=== PATIENT | female | born 1950 | race Asian ===

== ENCOUNTER 2017-02-26 14:05 | Inpatient (IN) | payer MEDICARE, OTHER ==
[~2017-02-26] VITALS: Ht 165.1 cm; Wt 51.7 kg
--- NOTE | 2017-02-26 14:15 | NUR ---
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 Per 5151 Hold pt endorse SI and is unable to contract for safety. Patient refused Novolog insulin for 2 days on 1:1 assessment, pt alert, oriented x 2, preoccupied with her own thoughts, anxious, flat affect, mood depressed, Pt stated "I have been crying for past few days, I am very depressed". History of bipolar, DM, and hypertension. Dr. Blanton and Dr. Cutler notified with admit orders patient's right hand book given and explained to patient. Patient able to verbalize understanding. All belongings checked in by staff. Start patient on [id number] safety check.
[2017-02-26] MEDS ORDERED: TEMA15CA PO (14:29)
[2017-02-26] MEDS ORDERED: INSU100V11 SQ (14:42)
[2017-02-26] MEDS ORDERED: MAGNESIUM HYDROXIDE 30 ML UDC PO PRN (15:00)
[2017-02-26] MEDS ORDERED: ACETAMINOPHEN 325 MG TABLET PO PRN (15:00)
[2017-02-26] MEDS ORDERED: MAG HYDROX/AL HYDROX/SIMETH 30 ML UDC PO PRN (15:00)
[2017-02-26 16:00] VITALS: BP 131/67
[2017-02-26] MEDS ORDERED: DEXTROSE 50%-WATER 50 ML DISP.SYRIN IV PRN (16:00)
[2017-02-26] MEDS: INSULIN REGULAR, HUMAN 100 UNIT/ML 3 ML VIAL SQ PRN (17:30)
[2017-02-26] MEDS: BLOOD SUGAR DIAGNOSTIC 1 EACH STRIP IN SCH ×2 (17:37→22:33)
[2017-02-26 20:16] VITALS: BP 116/58
--- NOTE | 2017-02-26 21:26 | NUR ---
RN GPS NOTES AT 2125 PT. BLOOD SUGAR IS 496MG/DL , AT 2223 RECHECK BLOOD SUGAR IS 445 MG/DL AND GAVE 10 UNITS OF REGULAR INSULIN , CHARGE NURSE NOTIFIED .
[2017-02-26] MEDS: *INSULIN REGULAR(HUMULIN R)HUM 100 UNIT/ML VIAL SQ PRN (22:32)
--- NOTE | 2017-02-26 23:39 | NUR ---
RN GPS NOTES AT 2339 RECHECK BLOOD SUGAR IS 422 ,CHARGE NURSE NOTIFIED , PT. COMFORTABLY RESTING NO ACUTE DISTRESS NOTED , WILL CONTINUE TO MONITOR .
--- NOTE | 2017-02-27 02:17 | NUR ---
RN GPS NOTES AT 0217 PT. BLOOD SUGAR IS 287 MG /DL , CHARGE NURSE NOTIFIED , PT. COMFORTABLY RESTING , NO ACUTE DISTRESS NOTED , WILL CONTINUE TO MONITOR .
--- NOTE | 2017-02-27 05:00 | NUR ---
RN GPS NOTES AT 0500 PT. BLOOD SUGAR IS 372 MG /DL , CHARGE NURSE NOTIFIED , PT. COMFORTABLY RESTING , NO ACUTE DISTRESS NOTED , WILL CONTINUE TO MONITOR .
--- NOTE | 2017-02-27 07:00 | NUR ---
RN OPENING NOTE PT WANDERING IN HALLWAY--CONFUSED. DENIES SI/HI. DENIES AVH. MOVES ALL EXT. A&OX1. FREE FROM INJURY AT PRESENT. WILL CONT TO MONITOR.
[2017-02-27] MEDS: BLOOD SUGAR DIAGNOSTIC 1 EACH STRIP IN SCH ×4 (08:31→21:32)
[2017-02-27] MEDS: INSULIN REGULAR, HUMAN 100 UNIT/ML 3 ML VIAL SQ PRN ×3 (08:51→16:41)
[2017-02-27 08:58] LABS: BASOPHILS # (AUTO) 0.1 /CMM (0.0-0.2); BASOPHILS % (AUTO) 1.2 % (0.0-2.0); EOSINOPHILS # (AUTO) 0.1 /CMM (0.0-0.7); EOSINOPHILS % (AUTO) 1.3 % (0.0-6.0); HEMATOCRIT 40 % (33-45); HEMOGLOBIN 13.3 g/dL (11.5-14.8); LYMPHOCYTES # (AUTO) 1.2 /CMM (0.8-4.8); MEAN CORPUSCULAR HEMOGLOBIN 30 PG (26.0-33.0); MEAN CORPUSCULAR HGB CONC 33 g/dl (31.0-36.0); MEAN CORPUSCULAR VOLUME 90 fL (82-100); MONOCYTES # (AUTO) 0.4 /CMM (0.1-1.30); NEUTROPHILS # (AUTO) 3.8 /CMM (1.8-8.9); NEUTROPHILS % (AUTO) 68.5 % (43.0-81.0); PLATELET COUNT (AUTO) 302 /CMM (150-450); RDW COEFFICIENT OF VARIATION 12.8 (11.5-15.0); RED BLOOD CELL COUNT(AUTO) 4.43 MIL/uL (4.0-5.2); WHITE BLOOD COUNT (AUTO) 5.5 K/uL (4.3-11.0)
--- NOTE | 2017-02-27 09:06 | NUR ---
CRITICAL VALUE FINGER STICK GLUCOSE CHECK 555 AND 565 ON RE-CHECK. ADMINISTERED 20UNITS HUMILIN ORDERED. PHONED DR. MIRANDA IRAHETA AND RECEIVED ORDER FOR ADD'TL 10UNITS HUMILIN ONE TIME STAT. RECE'VD ORDER FOR LANTUS 20 UNITS TO BEGIN TONIGHT. PT ASYMPTOMATIC.
[2017-02-27 09:07] VITALS: BP 122/69
[2017-02-27] MEDS ORDERED: INSULIN REGULAR, HUMAN 100 UNIT/ML 10 ML VIAL SQ STA (09:08)
[2017-02-27 09:17] LABS: ALBUMIN 3.3 g/dL (3.4-5.0); BILIRUBIN,TOTAL 0.5 mg/dL (0.2-1.0); CALCIUM, SERUM 9.4 mg/dL (8.5-10.1); CREATININE 0.8 mg/dL (0.6-1.3); MAGNESIUM 1.9 mg/dL (1.8-2.4); POTASSIUM 4.2 mmol/L (3.5-5.1); TOTAL PROTEIN, SERUM 6.7 g/dL (6.4-8.2)
--- NOTE | 2017-02-27 11:37 | NUR ---
RN NOTES HYPERGLYCEMIA SPOKE TO DR. MIRANDA LEAL BY PHONE. BLOOD SUGAR 502 FINGERSTICK. NO NEW ORDERS. 20 UNITS HUMILIN SC ADM AT THIS TIME.
[2017-02-27] MEDS: ARIPIPRAZOLE 5 MG TABLET PO SCH ×2 (12:40→21:32)
[2017-02-27] MEDS: glipiZIDE 5 MG TABLET PO SCH (16:28)
[2017-02-27 16:36] VITALS: BP 106/67
--- NOTE | 2017-02-27 18:47 | NUR ---
RN CLOSING NOTE PT RESTING CALM IN BED. DENIES SI/HI. DENIES AVH. MOVES ALL EXT. A&OX2. FREE FROM INJURY AT PRESENT. WILL ENDORSE TO PUSHPA GOOD.
[2017-02-27 19:57] VITALS: BP 107/59
[2017-02-27 20:00] VITALS: BP 107/59
[2017-02-27] MEDS: INSULIN DETEMIR 100 UNIT/ML CARTRIDGE SQ SCH (21:33)
--- NOTE | 2017-02-27 21:35 | NUR ---
GPS/COIN MACHINE OPERATOR NOTES: PT. REFUSED DETERMIR 20 UNIT SQ HS ORDERED. OFFERED 3X. EXPLAINED RISK AND BENEFITS. PT. STILL REFUSED. WILL CONTINUE TO MONITOR. CHARGE NURSE MADE AWARE
[2017-02-28 08:00] VITALS: BP 114/59
[2017-02-28] MEDS: BLOOD SUGAR DIAGNOSTIC 1 EACH STRIP IN SCH ×4 (10:50→21:48)
[2017-02-28] MEDS: ARIPIPRAZOLE 5 MG TABLET PO SCH ×2 (10:56→21:37)
[2017-02-28] MEDS: glipiZIDE 5 MG TABLET PO SCH ×2 (10:56→17:22)
[2017-02-28] MEDS: *INSULIN REGULAR(HUMULIN R)HUM 100 UNIT/ML VIAL SQ PRN ×2 (11:01→22:12)
[2017-02-28] MEDS: INSULIN REGULAR, HUMAN 100 UNIT/ML 3 ML VIAL SQ PRN ×2 (12:50→17:24)
--- NOTE | 2017-02-28 12:51 | NUR ---
RN NOTES PATIENT BS-446 MG/DL, ACCU CHECK DONE AFTER PATIENT EAT LUNCH, MD JEAN NOTIFIED, AND NEW ORDER CONTINUE SLIDING SCALE SCHEDULED. ORDER TAKEN AND CARRIED OUT.CONTINUED MONITORING.
--- NOTE | 2017-02-28 15:24 | NUR ---
Initial Discharge Plan Patient lives at [address] [place] [address] with her parents and wishes to return upon discharge. SW spoke with patient's sister, Cha [phone] who stated she felt it was safe for patient to return. Cha stated that pt's parents care deeply about her and they all help each other out. SW will help form a safe and proper discharge plan.
[2017-02-28 16:00] VITALS: BP 111/72
[2017-02-28 20:00] VITALS: BP 102/60
[2017-02-28] MEDS: INSULIN DETEMIR 100 UNIT/ML CARTRIDGE SQ SCH (22:15)
--- NOTE | 2017-02-28 22:25 | NUR ---
GPS/RN NOTE: C/O INSOMNIA, AMBIEN 5 MG TAB PO GIVEN.
[2017-03-01 08:00] VITALS: BP 110/66
[2017-03-01] MEDS: BLOOD SUGAR DIAGNOSTIC 1 EACH STRIP IN SCH ×4 (09:12→21:20)
[2017-03-01] MEDS: glipiZIDE 5 MG TABLET PO SCH ×2 (09:12→17:34)
[2017-03-01] MEDS: ARIPIPRAZOLE 5 MG TABLET PO SCH ×2 (09:12→21:20)
[2017-03-01] MEDS: INSULIN REGULAR, HUMAN 100 UNIT/ML 3 ML VIAL SQ PRN ×3 (09:14→17:36)
[2017-03-01 16:00] VITALS: BP 126/70
[2017-03-01 20:00] VITALS: BP 101/62
[2017-03-01] MEDS: INSULIN DETEMIR 100 UNIT/ML CARTRIDGE SQ SCH (21:25)
[2017-03-02 08:00] VITALS: BP 103/53
--- NOTE | 2017-03-02 08:14 | NUR ---
AFS-II-AAOPO: BLOOD SUGAR IS 235 MG/DL AND 8 UNITS OF REGULAR INSULIN
[2017-03-02] MEDS: glipiZIDE 5 MG TABLET PO SCH ×2 (09:08→16:35)
[2017-03-02] MEDS: BLOOD SUGAR DIAGNOSTIC 1 EACH STRIP IN SCH ×4 (09:08→22:09)
[2017-03-02] MEDS: INSULIN REGULAR, HUMAN 100 UNIT/ML 3 ML VIAL SQ PRN ×3 (09:11→17:16)
[2017-03-02] MEDS: ARIPIPRAZOLE 5 MG TABLET PO SCH ×3 (09:15→21:27)
--- NOTE | 2017-03-02 12:44 | NUR ---
JCE-OJ-HPMTH: BLOOD SUGAR IS 326 MG/DL AND GAVE 16 UNITS OF REGULAR INSULIN
[2017-03-02 16:00] VITALS: BP 111/58
[2017-03-02] MEDS: *INSULIN REGULAR(HUMULIN R)HUM 100 UNIT/ML VIAL SQ PRN (22:07)
[2017-03-02] MEDS: INSULIN DETEMIR 100 UNIT/ML CARTRIDGE SQ SCH (22:08)
[2017-03-02 22:58] VITALS: BP 124/67
[2017-03-03] MEDS: BLOOD SUGAR DIAGNOSTIC 1 EACH STRIP IN SCH ×4 (07:30→22:03)
--- NOTE | 2017-03-03 07:55 | NUR ---
GPS/RN NOTES: Checked patient's blood sugar as scheduled 486mg/dl given Humulin R 20units per sliding scale coverage. Repeated after 30 mins. BS result 487mg/dl. Dr. Lao notified with new order of Metformin noted and carried out. Will continue to monitor. Addendum: 03/03/17 at [address]VNG CHICAS RN Dr. Dominguez notified of BS not Dr. Lao
[2017-03-03] MEDS: INSULIN REGULAR, HUMAN 100 UNIT/ML 3 ML VIAL SQ PRN ×2 (07:58→12:00)
[2017-03-03 08:00] VITALS: BP 110/58
[2017-03-03] MEDS: glipiZIDE 5 MG TABLET PO SCH ×2 (08:31→17:01)
[2017-03-03] MEDS: ARIPIPRAZOLE 5 MG TABLET PO SCH ×3 (08:31→21:14)
[2017-03-03] MEDS: METFORMIN 500 MG TABLET PO SCH ×2 (09:05→17:03)
[2017-03-03] MEDS: TRIHEXYPHENIDYL HCL 2 MG TABLET PO SCH ×2 (13:50→17:45)
[2017-03-03 16:00] VITALS: BP 137/64
[2017-03-03 20:16] VITALS: BP 98/54
[2017-03-03] MEDS: INSULIN DETEMIR 100 UNIT/ML CARTRIDGE SQ SCH (22:06)
[2017-03-03] MEDS: *INSULIN REGULAR(HUMULIN R)HUM 100 UNIT/ML VIAL SQ PRN (22:08)
[2017-03-04 06:45] LABS: BASOPHILS # (AUTO) 0.1 /CMM (0.0-0.2); BASOPHILS % (AUTO) 0.8 % (0.0-2.0); EOSINOPHILS # (AUTO) 0.1 /CMM (0.0-0.7); EOSINOPHILS % (AUTO) 0.8 % (0.0-6.0); HEMATOCRIT 39 % (33-45); HEMOGLOBIN 13.1 g/dL (11.5-14.8); LYMPHOCYTES # (AUTO) 2.1 /CMM (0.8-4.8); LYMPHOCYTES % (AUTO) 26.8 % (20.0-44.0); MEAN CORPUSCULAR HEMOGLOBIN 30 PG (26.0-33.0); MEAN CORPUSCULAR HGB CONC 34 g/dl (31.0-36.0); MEAN CORPUSCULAR VOLUME 90 fL (82-100); MONOCYTES # (AUTO) 0.7 /CMM (0.1-1.30); MONOCYTES % (AUTO) 8.8 % (2.0-12.0); NEUTROPHILS # (AUTO) 4.9 /CMM (1.8-8.9); NEUTROPHILS % (AUTO) 62.8 % (43.0-81.0); PLATELET COUNT (AUTO) 366 /CMM (150-450); RDW COEFFICIENT OF VARIATION 12.7 (11.5-15.0); RED BLOOD CELL COUNT(AUTO) 4.31 MIL/uL (4.0-5.2); WHITE BLOOD COUNT (AUTO) 7.8 K/uL (4.3-11.0)
[2017-03-04 06:54] LABS: CALCIUM, SERUM 9.7 mg/dL (8.5-10.1); CREATININE 0.7 mg/dL (0.6-1.3); POTASSIUM 4.2 mmol/L (3.5-5.1)
[2017-03-04] MEDS: glipiZIDE 5 MG TABLET PO SCH ×2 (07:58→17:33)
[2017-03-04] MEDS: TRIHEXYPHENIDYL HCL 2 MG TABLET PO SCH ×3 (07:59→18:19)
[2017-03-04] MEDS: ARIPIPRAZOLE 5 MG TABLET PO SCH ×3 (07:59→21:01)
[2017-03-04 08:00] VITALS: BP 102/51
[2017-03-04] MEDS: METFORMIN 500 MG TABLET PO SCH ×2 (08:00→17:33)
[2017-03-04] MEDS: INSULIN REGULAR, HUMAN 100 UNIT/ML 3 ML VIAL SQ PRN ×2 (09:55→17:37)
[2017-03-04] MEDS: BLOOD SUGAR DIAGNOSTIC 1 EACH STRIP IN SCH ×4 (09:56→22:04)
--- NOTE | 2017-03-04 11:48 | NUR ---
RN NOTES BLOOD SUGAR 46. PROVIDED WITH ORANGE JUICE AND SNACKS. BLOOD SUGAR RECHECKED IN 30 MINUTES.
--- NOTE | 2017-03-04 12:15 | NUR ---
RN NOTES PATIENT BLOOD SUGAR NOW 158. WILL CONTINUE TO MONITOR.
--- NOTE | 2017-03-04 12:30 | NUR ---
RN NOTES NOTIFIED DR. BOUCHER OF BLOOD SUGAR DROP AND SPIKE. WILL CONTINUE TO MONITOR AND WILL ENDORSE TO NIGHT RN.
[2017-03-04 15:41] VITALS: BP 100/59
[2017-03-04] MEDS: INSULIN DETEMIR 100 UNIT/ML CARTRIDGE SQ SCH (19:00)
[2017-03-04 20:05] VITALS: BP 130/75
[2017-03-04] MEDS: TEMAZEPAM 7.5 MG CAPSULE PO PRN (21:01)
[2017-03-05 06:57] LABS: BASOPHILS # (AUTO) 0.1 /CMM (0.0-0.2); BASOPHILS % (AUTO) 1.1 % (0.0-2.0); EOSINOPHILS # (AUTO) 0.1 /CMM (0.0-0.7); EOSINOPHILS % (AUTO) 1.5 % (0.0-6.0); HEMATOCRIT 36 % (33-45); HEMOGLOBIN 12.2 g/dL (11.5-14.8); LYMPHOCYTES % (AUTO) 31.1 % (20.0-44.0); MEAN CORPUSCULAR HEMOGLOBIN 30 PG (26.0-33.0); MEAN CORPUSCULAR HGB CONC 34 g/dl (31.0-36.0); MEAN CORPUSCULAR VOLUME 89 fL (82-100); MONOCYTES # (AUTO) 0.6 /CMM (0.1-1.30); NEUTROPHILS # (AUTO) 3.7 /CMM (1.8-8.9); NEUTROPHILS % (AUTO) 57.3 % (43.0-81.0); PLATELET COUNT (AUTO) 341 /CMM (150-450); RDW COEFFICIENT OF VARIATION 12.8 (11.5-15.0); RED BLOOD CELL COUNT(AUTO) 4.06 MIL/uL (4.0-5.2); WHITE BLOOD COUNT (AUTO) 6.4 K/uL (4.3-11.0)
[2017-03-05 07:09] LABS: CALCIUM, SERUM 9.2 mg/dL (8.5-10.1); CREATININE 0.5 mg/dL (0.6-1.3); PHOSPHORUS 3.7 mg/dL (2.5-4.9)
[2017-03-05] MEDS: glipiZIDE 5 MG TABLET PO SCH ×2 (07:30→16:30)
[2017-03-05 08:00] VITALS: BP 113/67
[2017-03-05] MEDS: ARIPIPRAZOLE 5 MG TABLET PO SCH ×3 (08:00→22:54)
[2017-03-05] MEDS: TRIHEXYPHENIDYL HCL 2 MG TABLET PO SCH ×3 (08:00→18:05)
[2017-03-05] MEDS: BLOOD SUGAR DIAGNOSTIC 1 EACH STRIP IN SCH ×4 (08:13→22:57)
[2017-03-05] MEDS: INSULIN REGULAR, HUMAN 100 UNIT/ML 3 ML VIAL SQ PRN ×2 (08:14→17:59)
[2017-03-05] MEDS: METFORMIN 500 MG TABLET PO SCH ×2 (09:10→17:49)
--- NOTE | 2017-03-05 12:10 | NUR ---
VALENTINE called and made appointment for patient with her psychiatrist, Dr. Johnson [id number], . Addendum: 03/05/17 at 1211 by CONNOR GRIJALVA Appointment set for March 08 at 2:15pm.
[2017-03-05 16:00] VITALS: BP 130/70
[2017-03-05 20:00] VITALS: BP 117/75
[2017-03-05] MEDS: INSULIN DETEMIR 100 UNIT/ML CARTRIDGE SQ SCH (22:00)
[2017-03-05] MEDS: TEMAZEPAM 7.5 MG CAPSULE PO PRN (22:54)
--- NOTE | 2017-03-05 22:58 | NUR ---
GPS/RN ACCU CHECK BLOOD SUGAR = 98, LEVEMIR NOT GIVEN. WILL MONITOR PATIENT.
[2017-03-05] MEDS: LORAZEPAM 0.5 MG TABLET PO PRN (23:52)
--- NOTE | 2017-03-05 23:55 | NUR ---
GPS/RN PATIENT STILL AWAKE, WALKING AROUND HALLWAY, AGITATION NOTED, ATIVAN 0.5 MG PO WAS GIVEN ORDERED. WILL MONITOR.
--- NOTE | 2017-03-06 06:05 | NUR ---
GPS/RN AWAKE, NOTED TO BE FIXING HER BED, ALL NEEDS ATTENDED AT THIS TIME. WILL CONTINUE TO MONITOR.
[2017-03-06] MEDS: BLOOD SUGAR DIAGNOSTIC 1 EACH STRIP IN SCH ×4 (07:47→21:52)
[2017-03-06] MEDS: INSULIN REGULAR, HUMAN 100 UNIT/ML 3 ML VIAL SQ PRN ×2 (07:55→18:08)
[2017-03-06 08:00] VITALS: BP 116/68
[2017-03-06] MEDS: TRIHEXYPHENIDYL HCL 2 MG TABLET PO SCH ×3 (08:23→17:39)
[2017-03-06] MEDS: ARIPIPRAZOLE 5 MG TABLET PO SCH ×3 (08:23→21:40)
[2017-03-06] MEDS: glipiZIDE 5 MG TABLET PO SCH ×2 (08:23→16:36)
[2017-03-06] MEDS: METFORMIN 500 MG TABLET PO SCH ×2 (08:24→17:07)
--- NOTE | 2017-03-06 08:46 | NUR ---
MOHSEN-NOTES PATIENT BLOOD SUGAR WAS 314MG/DL, 16 UNITS OF R INSULIN GIVEN ORDERED. Addendum: 03/06/17 at 1143 by MIKE PATRICK LVN CORRECTIONS ON MY EARLIER NOTES. PATIENT BLOOD SUGAR AT 0755 WAS 341MG/DL.
--- NOTE | 2017-03-06 10:55 | NUR ---
CLOTH BLEACHING RANGE TENDER-NOTES SEEN THE PATIENT WITH VERBAL ORDER OF LEVEMIR 10 UNITS X1.NOTED AND CARRIED OUT.
[2017-03-06] MEDS ORDERED: INSULIN DETEMIR 100 UNIT/ML CARTRIDGE SQ ONE (11:00)
--- NOTE | 2017-03-06 11:30 | NUR ---
PARTS REPRESENTATIVE-NOTES PATIENT BLOOD SUGAR WAS 92MG/DL,NO COVERAGE GIVEN.
[2017-03-06] MEDS: QUETIAPINE FUMARATE 25 MG TABLET PO SCH ×2 (14:03→17:07)
[2017-03-06] MEDS: LORAZEPAM 0.5 MG TABLET PO PRN (15:41)
--- NOTE | 2017-03-06 15:45 | NUR ---
VULCANIZER OPERATOR-NOTES NOTED PATIENT VERY ANXIOUS PACING AND DIGGING TRUST. STATED" MY MOM WAS HERE YESTERDAY AND MY DAD IS COMING I NEED TO GIVE HIM SOMETHING". REORIENTED AND REDIRECTED PATIENT AND OFFERED ATIVAN AND AGREED. ATIVAN 0.5MG P.O GIVEN PRN ORDER. WILL CONT. MONITORING FOR SAFETY AND BEHAVIOR.
[2017-03-06 15:59] VITALS: BP 120/75
--- NOTE | 2017-03-06 18:10 | NUR ---
HELIX COIL WINDER-NOTES PATIENT BLOOD SUGAR WAS 182MG/DL,4 UNITS OF R INSULIN GIVEN ORDERED.
[2017-03-06 20:00] VITALS: BP 126/59
[2017-03-06] MEDS: TEMAZEPAM 7.5 MG CAPSULE PO PRN (21:40)
[2017-03-06] MEDS: INSULIN DETEMIR 100 UNIT/ML CARTRIDGE SQ SCH (22:14)
[2017-03-07 07:08] LABS: CALCIUM, SERUM 8.7 mg/dL (8.5-10.1); CREATININE 0.6 mg/dL (0.6-1.3); MAGNESIUM 1.9 mg/dL (1.8-2.4); PHOSPHORUS 4.5 mg/dL (2.5-4.9); POTASSIUM 4.1 mmol/L (3.5-5.1)
[2017-03-07] MEDS: BLOOD SUGAR DIAGNOSTIC 1 EACH STRIP IN SCH ×4 (07:30→21:19)
--- NOTE | 2017-03-07 07:54 | NUR ---
GPS RN NOTE PATIENT REFUSED BLOOD GLUCOSE CHECK STATING SHE DOES NOT WANT TO BE BOTHERED AND WANTS TO SLEEP. RN EXPLAINED THE REASON OF THE BLOOD GLUCOSE CHECK. PATIENT STATED SHE UNDERSTANDS THE REASON OF THE TEST AND STILL REFUSES IT.
[2017-03-07 08:00] VITALS: BP 114/74
--- NOTE | 2017-03-07 08:00 | NUR ---
GPS RN AM NOTES PT WANDERING IN HALLWAY--CONFUSED. DENIES SI/HI. DENIES AVH. MOVES ALL EXT. A&OX1. FREE FROM INJURY AT PRESENT. WILL CONT TO MONITOR.
[2017-03-07] MEDS: ARIPIPRAZOLE 5 MG TABLET PO SCH ×3 (08:58→21:08)
[2017-03-07] MEDS: METFORMIN 500 MG TABLET PO SCH ×2 (08:59→16:30)
[2017-03-07] MEDS: QUETIAPINE FUMARATE 25 MG TABLET PO SCH ×2 (08:59→16:30)
[2017-03-07] MEDS: TRIHEXYPHENIDYL HCL 2 MG TABLET PO SCH ×3 (08:59→18:26)
[2017-03-07] MEDS: glipiZIDE 5 MG TABLET PO SCH ×2 (08:59→16:30)
--- NOTE | 2017-03-07 09:03 | NUR ---
VALENTINE cancelled pt's follow up appointment with her psychiatrist, Dr. Johnson [address] [place], , on FridayMarch 08 because patient will be at [facility] through the weekend. Intermediate Project Manager informed VALENTINE to call day of discharge to schedule appointment.
[2017-03-07] MEDS: INSULIN REGULAR, HUMAN 100 UNIT/ML 3 ML VIAL SQ PRN (12:41)
[2017-03-07 16:00] VITALS: BP 98/51
[2017-03-07 20:00] VITALS: BP 105/54
[2017-03-07] MEDS: INSULIN DETEMIR 100 UNIT/ML CARTRIDGE SQ SCH (21:25)
[2017-03-08] MEDS: BLOOD SUGAR DIAGNOSTIC 1 EACH STRIP IN SCH ×4 (07:48→21:55)
[2017-03-08] MEDS: INSULIN REGULAR, HUMAN 100 UNIT/ML 3 ML VIAL SQ PRN ×3 (07:49→21:57)
[2017-03-08 08:00] VITALS: BP 110/72
[2017-03-08] MEDS: METFORMIN 500 MG TABLET PO SCH ×2 (08:29→17:20)
[2017-03-08] MEDS: QUETIAPINE FUMARATE 25 MG TABLET PO SCH ×2 (08:29→17:20)
[2017-03-08] MEDS: glipiZIDE 5 MG TABLET PO SCH ×2 (08:29→17:20)
[2017-03-08] MEDS: ARIPIPRAZOLE 5 MG TABLET PO SCH ×3 (08:30→21:48)
[2017-03-08] MEDS: TRIHEXYPHENIDYL HCL 2 MG TABLET PO SCH ×3 (08:30→17:20)
[2017-03-08 16:00] VITALS: BP 100/59
[2017-03-08 20:00] VITALS: BP 121/57
[2017-03-08] MEDS: TEMAZEPAM 7.5 MG CAPSULE PO PRN (21:49)
[2017-03-08] MEDS: INSULIN DETEMIR 100 UNIT/ML CARTRIDGE SQ SCH (21:56)
[2017-03-09] MEDS: BLOOD SUGAR DIAGNOSTIC 1 EACH STRIP IN SCH ×4 (07:39→21:11)
[2017-03-09] MEDS: glipiZIDE 5 MG TABLET PO SCH ×2 (07:47→16:20)
[2017-03-09] MEDS: METFORMIN 500 MG TABLET PO SCH ×2 (07:47→16:20)
[2017-03-09] MEDS: ARIPIPRAZOLE 5 MG TABLET PO SCH ×3 (07:48→21:16)
[2017-03-09] MEDS: QUETIAPINE FUMARATE 25 MG TABLET PO SCH ×3 (07:48→16:21)
[2017-03-09] MEDS: TRIHEXYPHENIDYL HCL 2 MG TABLET PO SCH ×3 (07:48→17:00)
[2017-03-09 08:00] VITALS: BP 100/59
[2017-03-09] MEDS: INSULIN REGULAR, HUMAN 100 UNIT/ML 3 ML VIAL SQ PRN ×2 (08:18→16:58)
[2017-03-09 15:25] VITALS: BP 103/58
--- NOTE | 2017-03-09 19:30 | NUR ---
RN NOTE; RECEIVED POT IN BED , SLEEPING.BREATHING EVENLY. W/ NO S/S OF DISCOMFORT. WILL CONT TO MONITOR.
[2017-03-09 20:00] VITALS: BP 118/71
[2017-03-09 20:20] VITALS: BP 118/77
[2017-03-09] MEDS: INSULIN DETEMIR 100 UNIT/ML CARTRIDGE SQ SCH (21:16)
--- NOTE | 2017-03-09 21:20 | NUR ---
HELD LEVEMSHANIQUE FOR BS:92. PT ALERT W/ NO ALOC, NO AMS. NO S/S OF HYPOGLYCEMIA. WILL CONT TO MONITOR .
--- NOTE | 2017-03-10 06:34 | NUR ---
RN NOTE; PT IN BED AWAKE AND ALERT. COMPLIANT W/ MED AND POC . NO PSYCH OR BEHAVIORAL ISSUES. NO S/S OF HYPO OR HYPERGLYCEMIA.HAD A GOOD NIGHT SLEEP. NEEDS ATTENDED. BED LOW LOCKED .WILL CONT TO MONITOR AND WILL ENDORSE TO AM SHIFT FOR JOSUÉ .
[2017-03-10 06:52] LABS: CALCIUM, SERUM 9.2 mg/dL (8.5-10.1); CREATININE 0.8 mg/dL (0.6-1.3); MAGNESIUM 1.7 mg/dL (1.8-2.4); PHOSPHORUS 3.4 mg/dL (2.5-4.9); POTASSIUM 4.1 mmol/L (3.5-5.1)
[2017-03-10] MEDS: BLOOD SUGAR DIAGNOSTIC 1 EACH STRIP IN SCH ×5 (07:49→22:04)
[2017-03-10 08:00] VITALS: BP 150/69
[2017-03-10] MEDS: INSULIN REGULAR, HUMAN 100 UNIT/ML 3 ML VIAL SQ PRN ×2 (08:04→17:34)
[2017-03-10] MEDS: TRIHEXYPHENIDYL HCL 2 MG TABLET PO SCH ×3 (08:39→18:37)
[2017-03-10] MEDS: glipiZIDE 5 MG TABLET PO SCH ×2 (08:39→16:34)
[2017-03-10] MEDS: ARIPIPRAZOLE 5 MG TABLET PO SCH ×3 (08:40→21:12)
[2017-03-10] MEDS: QUETIAPINE FUMARATE 25 MG TABLET PO SCH ×2 (09:38→16:59)
[2017-03-10] MEDS: METFORMIN 500 MG TABLET PO SCH ×2 (09:44→16:59)
[2017-03-10] MEDS: MAGNESIUM OXIDE 400 MG TABLET PO SCH ×2 (11:08→21:12)
[2017-03-10 16:45] VITALS: BP 100/66
--- NOTE | 2017-03-10 19:30 | NUR ---
GPS RN NOTE, RECEIVED PATIENT AWAKE AND IN BED NO S/S OR COMPLAINTS OF PAIN AT THIS TIME. PATIENT IS DISPLAYING NO S/S OF APPARENT DISTRESS AT THIS TIME. PATIENT BREATHING IS UNLABORED WITH EQUAL RISE AND FALL OF THE CHEST. PATIENT IS ALERT AND ORIENTED X3 ON ROOM AIR WITH A SPOO2 98%. PATIENT IS MED COMPLIANT, PREOCCUPIED WITH OWN THOUGHTS, ANXIOUS, DISORGANIZED, AND NEEDS REORIENTATION. PATIENT DENIES SUICIDE IDEATIONS AND HOMICIDAL IDEATIONS AT THIS TIME. PATIENT ASSISTED WITH TURNING AND REPOSITIONING Q2HR AND PRN FOR COMFORT AND CIRCULATION. PATIENT HAS NO NEEDS AT THIS TIME. PATIENT EDUCATED ON THE USE OF THE CALL GUERRERO. PATIENT BED SIDE RAILS UP X 2 FOR SAFETY. PATIENT BED IS LOCKED AND LOW WILL CONTINUE TO MONITOR AND MAINTAIN SAFETY Q15 MIN WITH THE HELP OF STAFF.
[2017-03-10 20:38] VITALS: BP 114/61
[2017-03-10] MEDS: INSULIN DETEMIR 100 UNIT/ML CARTRIDGE SQ SCH (22:00)
--- NOTE | 2017-03-10 22:04 | NUR ---
GPS RN NOTE, PERFORMED ACCU CHECK ON PATIENT WITH A BLOOD SUGAR RESULT OF 77. NO INSULIN GIVEN PER SLIDING SCALE. HELD LEVEMIR 10 UNITS DUE TO LOW BLOOD SUGAR. PATIENT OFFERED AND GIVEN SNACK. WILL CONTINUE TO MONITOR THIS PATIENT.
[2017-03-11 08:00] VITALS: BP 105/63
--- NOTE | 2017-03-11 09:00 | NUR ---
GPS/RN BS 392 THIS A.M., ADMINISTERED 20 UNITS REGULAR INSULIN PER SLIDING SCALE. WILL CONTINUE TO MONITOR.
[2017-03-11] MEDS: METFORMIN 500 MG TABLET PO SCH (09:09)
[2017-03-11] MEDS: glipiZIDE 5 MG TABLET PO SCH (09:10)
[2017-03-11] MEDS: QUETIAPINE FUMARATE 25 MG TABLET PO SCH (09:10)
[2017-03-11] MEDS: ARIPIPRAZOLE 5 MG TABLET PO SCH ×2 (09:10→13:58)
[2017-03-11] MEDS: TRIHEXYPHENIDYL HCL 2 MG TABLET PO SCH ×2 (09:10→13:58)
[2017-03-11] MEDS: INSULIN REGULAR, HUMAN 100 UNIT/ML 3 ML VIAL SQ PRN (09:15)
[2017-03-11] MEDS: BLOOD SUGAR DIAGNOSTIC 1 EACH STRIP IN SCH ×2 (09:17→12:06)
--- NOTE | 2017-03-11 15:47 | NUR ---
Discharge Note Patient will be discharged home to [address] [place] [address] via private vehicle. Patient will be picked up by her sister, Cha [phone]. Patient lives with her parents and her sister is really involved in her care. The family is agreeable with this plan. Patient will be seen by her psychiatrist, Dr. Johnson [address] [place], on Friday, 03/14 at 1pm. Patient also has an appointment with her medical doctor, Dr. Barger [address] [facility] [phone], on 03/17 at 10:30am. SW also faxed a home health order to [facility] [phone] / fax number [phone].
[2017-03-11 16:07] VITALS: BP 106/60
[2017-03-11] MEDS ORDERED: TRIHEXYPHENIDYL HCL 2 MG TABLET PO STA (16:15)
[2017-03-11] MEDS ORDERED: QUETIAPINE FUMARATE 25 MG TABLET PO STA (16:15)
--- NOTE | 2017-03-11 16:19 | NUR ---
RN-CO: Per sister(responsible democrat) if they can bring one dose due at 5pm of Charline Bishop, Seroquel since accdg to them their pharmacy is closed at this time. Notified Dr Blanton and ok'd for it.
--- NOTE | 2017-03-11 16:22 | NUR ---
Please note that VALENTINE was notified by Akshat from [facility] that this agency does not service [place]. VALENTINE faxed over an referral to [facility] [phone] / fax number [phone]
[2017-03-11] MEDS ORDERED: ARIPIPRAZOLE 5 MG TABLET PO SCH (16:30)
[2017-03-11] MEDS ORDERED: ARIPIPRAZOLE 5 MG TABLET PO ONE ×2 (16:30→16:44)
--- NOTE | 2017-03-11 17:00 | NUR ---
GPS/RN PATIENT CLEARED FOR DISCHARGE HOME (to [address] [place] [address] via private vehicle. Patient will be picked up by her sister, Cha [phone]) BY DR BABCOCK AND DR MALONEY. PRESCRIPTIONS, AFTERCARE PLAN AND PACKET, EXPLAINED TO PATIENT AND SISTER CHA, VERBALIZED UNDERSTANDING. PRESCRIPTIONS FAXED TO [facility] [phone]. ALL BELONGINGS RETURNED AND SIGNED FOR BY PATIENT, HOME HEALTH ORDERED BY DR MALONEY. PATIENT STABLE CONDITION, DENIES SI/HI/AH AT TIME OF DISCHARGE. LEFT UNIT CALM, COOPERATIVE WITH SISTER CHA AND GEAR REPAIR SUPERVISOR AT SIDE.
== END 2017-03-11 17:00 | disposition home health service (06) | DRG 885 ==
LOC: GPS 14:05
PROVIDERS: ADMIT Psychiatry & Neurology Psychosomatic Medicine; ATTEND Internal Medicine
DX: F29 Unspecified psychosis not due to a substance or known physiological condition (principal); E11.65 Type 2 diabetes mellitus with hyperglycemia; E44.1 Mild protein-calorie malnutrition; Z68.1 Body mass index [BMI] 19.9 or less, adult; E83.42 Hypomagnesemia; F25.0 Schizoaffective disorder, bipolar type; F41.9 Anxiety disorder, unspecified; I10 Essential (primary) hypertension; M19.90 Unspecified osteoarthritis, unspecified site; Z73.6 Limitation of activities due to disability; F32.9 Major depressive disorder, single episode, unspecified; Z91.14 Patient's other noncompliance with medication regimen; Z79.84 Long term (current) use of oral hypoglycemic drugs
CPT/HCPCS: 36415; 80048-TC; 80053-TC; 80061-TC; 82962-TC; 83735-TC; 84100-TC; 85025-TC; J1815